=== PATIENT | female | born 1980 | race Caucasian/White ===

== ENCOUNTER 2019-11-13 23:52 | Emergency (ER) | payer OTHER ==
[~2019-11-13] VITALS: Ht 160 cm; Wt 77.1 kg
[2019-11-14] MEDS ORDERED: KEFLEX500 M1 PO (01:29)
[2019-11-14] MEDS ORDERED: HYDROCODON-ACE1 EAC7 PO (01:29)
[2019-11-14] MEDS ORDERED: IBUPROFEN 600600 M1 PO (01:29)
[2019-11-14 01:56] VITALS: BP 127/75
== END 2019-11-14 01:57 | disposition home or self-care (01) ==
LOC: M.ERS 23:52
DX: S99.821A Other specified injuries of right foot, initial encounter (principal); W22.8XXA Striking against or struck by other objects, initial encounter; Y93.89 Activity, other specified; Y92.098 Other place in other non-institutional residence as the place of occurrence of the external cause; Y99.8 Other external cause status